=== PATIENT | male | born 1985 | race Caucasian/White ===

== ENCOUNTER 2019-08-13 07:34 | Emergency (ER) | payer OTHER, SELFPAY ==
[2019-08-13 07:36] VITALS: BP 143/108; PULSE 89; RESP 17; TEMP 36.7; O2SAT 100; BMI 29.0
--- NOTE | 2019-08-13 07:44 | ED.VIS.GEN ---
History of Present Illness Chief Complaint: Lower Extremity Injury Detail of Chief Complaint: Painful bump posterior distal left calf Informant: Patient Onset: Days Context: Sudden Onset Timing: Continuous Quality: Pain Location: Posterior distal left calf Current Severity: Mild Maximum Severity: Moderate Worsened by: Palpation Relieved by: Nothing Associated Symptoms: No associated symptoms Narrative: She is a 34-year-old male with history of varicose veins who presents because a painful lump after sleeping in an accurate position on self several days ago. He denies cardiac respiratory symptoms. He has no prior history of VTE. He has no significant past medical history. He does not have a primary care physician. He lives in [place]. He has not noted any redness, warmth, and there is no red streaking noted. Prior similar symptoms: No Recent Illness/Hospitalization: No - Past Medical History (1) Varicose veins of left lower extremity Status: Acute Past Medical History - Allergies and Home Meds Allergies/Adverse Reactions: Allergies No Known Allergies Allergy (Verified 08/13/19 07:35) Primary Care Physician: Care Physician,No Primary [Primary Care Provider] - Prior records reviewed: No Surgical History: no surgical history Lives: Spouse/ Significant Other Smoking Status: Never smoker Drugs: None Review of Systems General: Denies: Chills, Fever, Malaise, Subjective, Sweats, Weight loss, - Cardiovascular: Denies: Chest pain, Palpitations Respiratory: Denies: Dyspnea, Cough, Dyspnea on exertion Musculoskeletal: Reports: Swelling, Extremity Pain. Denies: Myalgias, Arthralgias, Neck pain, Back pain Skin: Denies: Rash, Wounds Hematologic: Denies: Easy bruising, Easy bleeding Physical Exam Vital Signs/Narrative: Vital Signs Temp Pulse Resp BP Pulse Ox 08/13/19 07:36 98.1 F 89 17 143/108 H 100 Inital Vital Signs reviewed: Yes General: Well nourished, Well developed, No Acute Distress Head: Normocephalic, Atraumatic Eyes: Perrl, EOMI. Negative for: Pale conjunctiva, Scleral icterus Cardiovascular: Regular rate, Regular rhythm Respiratory: No distress Extremities: No edema, Tenderness, - - Varicose veins noted posterior mid left calf. Still and slightly lateral is a palpable clot consistent with superficial phlebitis. There is no asymmetry, discoloration or swelling of the left leg compared to the right. Skin: Normal color, No rash, No Trauma Neurological: Alert, Oriented x3, Cranial nerves II-XII grossly intact, Normal Strength, Normal Sensation Psychological: Normal affect Diagnostic/Tx/Re-eval - Medical Decision Making Patient presents because of concern for DVT. Patient was informed that findings are consistent with superficial phlebitis. He was informed that superficial Vitas is not associated with clots that go to the long, which was his main concern. He was informed of treatment plan. He was instructed to contact where he is employed for physician in his area. ED Disposition - Plan for ED Patient: Disposition: Home or Assisted Living Diagnosis: Superficial phlebitis of left leg Instructions: THROMBOPHLEBITIS, Superficial Referrals: Care Physician,No Primary [Primary Care Provider] - Additional Instructions: Recommend taking an aspirin twice a day for the next week.
[2019-08-13] MEDS: Aspirin 325 MG Tablet PO (08:07)
== END 2019-08-13 08:11 | disposition home or self-care (01) ==
LOC: ED 08:02
PROVIDERS: Emergency Provider Emergency Medicine
DX: I80.02 Phlebitis and thrombophlebitis of superficial vessels of left lower extremity (principal)
CPT/HCPCS: 99283